=== PATIENT | female | born 1990 | race American Indian/Alaskan Native ===

== ENCOUNTER 2018-05-29 03:10 | Inpatient (IN) | payer MEDICAID ==
[2018-05-29 03:34] VITALS: BMI 30.8
[2018-05-29] MEDS ORDERED: Oxytocin 30 UNIT 30 UNITS/500 ML BAG IV ONE ×2 (03:50→09:50)
[2018-05-29] MEDS: Lactated Ringer's 1,000 ML IV ONE ×2 (04:00→05:00)
[2018-05-29] MEDS ORDERED: OXYTOCIN/0.9 % NS 20 UNIT/1,000 ML BAG IV SCH (04:00)
[2018-05-29] MEDS ORDERED: Lactated Ringer's 1,000 ML IV SCH (04:00)
[2018-05-29 04:27] LABS: BASO # 0.1 K/uL (0.0-0.2); BASO % 0.6 % (0.0-2.0); EOS # 0.1 K/uL (0.0-0.7); EOS % 0.9 % (0.0-4.0); HEMOGLOBIN 12.2 g/dL (12.0-16.0); LYMPH # 1.6 K/uL (1.0-4.3); LYMPH % 16.4 % (20.0-40.0); MEAN CELL VOLUME 91.9 fl (81.0-99.0); MEAN CORPUSCULAR HGB CONC 33.8 g/dL (33.0-37.0); MEAN PLATELET VOLUME 11.3 fl (7.2-11.7); MONO # 0.7 K/uL (0.0-0.8); MONO % 7.4 % (0.0-10.0); NEUT # 7.1 K/uL (1.8-7.0); NEUT % 74.7 % (50.0-75.0); NRBC % 0.3 % (0.0-0.0); RBC 3.95 Mil/uL (3.80-5.20); RED CELL DISTRIBUTION WIDTH 14.7 % (11.5-14.5); WHITE BLOOD COUNT 9.5 K/uL (4.8-10.8)
[2018-05-29] MEDS ORDERED: Fentanyl/Bupivacaine HCl 250 ML EPI ONE (05:48)
[2018-05-29 07:31] VITALS: O2SAT 98
--- NOTE | 2018-05-29 08:30 | OBADHP ---
Datetime: 05/29/2018 03:55 Admit Comment, IP Provider: ETHEL: 05/31/2018 based off of 1st trimester ultrasound LMP1 irregular due to PCOS PNP: [facility] Dr. Saldnaa 28 y/o @ 39.5wks with ETHEL 06/02/2018 (based off of 1st trimester ultrasound) is presenting wit h complaints of contractions that began 2 hrs ago. She reports pain is 10/10. She endorses +FM, but d enies any complications during this ,vaginal bleeding, loss of fluid, f/c/n/v/d, chest pain, shortness of breath or dysuria . ROS: 12 points reviewed _ negative unless stated otherwise in HPI. OBGYNhx: x 2 PMH: PCOS Family Hx: non-contributory Social: Denies tob, EtOH, drugs Surg Hx: Denies Allergies: NKA Meds: PNV VS: 129/87 Pulse-98bpm SPO2-98% RR-16 PE: Intermittent facial grimacing; lying supine position CV: s1s2 RRR, no murmurs Lungs: Cta b/l, no wheezes Abdomen: Gravid, BS + FHR: reassuring - 145bpm, no decel Pelvic: Nurse Britta as regional controller (Dr. Ortiz, 4-5cm dilated) Extremities: calves nontender, nonedematous A/P: 28 y/o @ 39.3wks, 06/02/2018 based off of 1st trimester ultrasound is presenting with complai nts of contractions. -Admit to L_ D with continuous monitoring. -Labor protocol initiated. Patient seen and examined with Dr. Ortiz. Dr. Micheal Bonner, , PGY-1 Addendum: I saw and examined patient at presentation. Admit for management of labor. FHT category I. Angel Gestation - Est Wks by US: 39.5 Pool Provider: Negative IP Hx Assessment: The History has been Reviewed and is Current Vital Signs Provider: Reviewed; Within Normal Limits IP Chief Complaint: Uterine contractions NICHD Accel Fetus A IP Provider: 15X15 FHR Category Provider Fetus A: Category I NICHD Decel Fetus A IP Provider: None Dilatation, Provider: 4-5 EGA AdmitDate IP: 39.5 IP Adm Impression: Term, intrauterine IP Admit Plan: Admit to unit Datetime: 04/16/2018 11:50 Pelvic Type - PN: Adequate Extremities - PN: Normal Abdomen - PN: Normal Back - PN: Normal Breast - PN: Not Done Lungs - PN: Normal Heart - PN: Normal Thyroid - PN: Normal Neurologic - PN: Normal HEENT - PN: Normal General - PN: Normal Weight - Estimated: 2589 Presentation-Admit: Vertex FHR - Baseline A Provider: 140 Membranes, Provider: Intact Contraction Comments Provider: none Comments, ACOG Physical Exam: Gen: patient sitting up comfortably, no acute distress Heart: Normal RRR, S1S2 Lungs: Clear bilaterally Abd: nontender, soft, normal bowel sounds SVE: (chaperoned by nurse graff/Dr. Jaffe) normal external genitalia, closed cervix, thick whit e discharge Extremities: no pedal edema or calf tenderness Neuro: alert, oriented x3 NICHD Variability Prov Fetus A: Moderate 6-25bpm Effacement, Provider: thick Station, Provider: high Genitourinary Exam: Normal DTRs - PN: Not Done
--- NOTE | 2018-05-29 09:43 | OBPN ---
Datetime: 05/29/2018 09:31 IP Progress Impression: Normal progression of labor IP Informed Consent Obtain: Vaginal Delivery IP Procedures: Sterile Vag Exam IP Progress Plan: Augmentation Membranes, Provider: Intact Contraction Comments Provider: Q3-4 FHR - Baseline A Provider: 130 IP Progress Note Comment: S: pt admitted in early labor, s/p epidural placement, denies any complain ts O: see above A: early active labor, overall reassuring maternal/ status P: 1. labor, start pitocin for active management of labor 2. fetus: category 1 tracing 3. GBS neg 4. epidural in situ, adequate 5. patient w/ anti E antibody, stable titers and testing, alert nursery 6. prior x 2, pelvis adequate, anticipate Xiomy Jaffe MD Vital Signs Provider: Reviewed; Within Normal Limits NICHD Accel Fetus A IP Provider: 15X15 NICHD Variability Prov Fetus A: Moderate 6-25bpm Dilatation, Provider: 5-6 Effacement, Provider: 50 Station, Provider: -3 NICHD Decel Fetus A IP Provider: None Datetime: 05/29/2018 03:55 Pool Provider: Negative Gestation - Est Wks by US: 39.5 FHR Category Provider Fetus A: Category I Datetime: 04/16/2018 11:50 Weight - Estimated: 2589 Presentation-Admit: Vertex
[2018-05-29] MEDS ORDERED: Bupivacaine HCl 0.5% PF (30 ml) Inj ONE (11:57)
--- NOTE | 2018-05-29 14:05 | OBPN ---
Datetime: 05/29/2018 13:59 IP Progress Impression: Normal progression of labor IP Informed Consent Obtain: Vaginal Delivery IP Procedures: Sterile Vag Exam IP Progress Plan: Continue present management Contraction Comments Provider: q2-3 FHR - Baseline A Provider: 120 IP Progress Note Comment: Patient denies any complaints. SVE: FD/10/0 Category 1 tracing Cont expectant management Anticipate Xiomy Jaffe MD Vital Signs Provider: Reviewed; Within Normal Limits NICHD Accel Fetus A IP Provider: 15X15 NICHD Variability Prov Fetus A: Moderate 6-25bpm Dilatation, Provider: RAUL Effacement, Provider: 100 Station, Provider: 0 NICHD Decel Fetus A IP Provider: None
[2018-05-29] MEDS ORDERED: Benzocaine/Menthol SPRAY TOP PRN ×2 (15:00→16:58)
--- NOTE | 2018-05-29 15:24 | OBDS ---
MATERNAL INFORMATION Provider Comments: 28F G3 now P3, GBS negative p/w labor at 39.5wks (1416) of live male infant, KAILEY over intact perineum w/epidural anesthesia. No nuchal cord, shoulder and body delivered spontane ously w/o difficulty and baby placed on maternal abdomen. Delayed cord clamping, 9/9. Spontane ous delivery of intact placenta (1420) with 3-vessel cord. Fundal massage until firm, pitocin started . Bilateral paraurethral abrasions, hemostatic. EBL- 250cc Theresa Saldana Attending addendum: I was present for the management of labor, examined the patient myself and was present for the del bradley. I reviewed the resident note above and agree with findings and mangement. Xiomy Jaffe MD LABOR SUMMARY EDC: 05/31/2018 00:00 No. Babies in Womb: 1 LABOR INFORMATION Onset of Labor: 05/29/2018 01:30 Group B Beta Strep: Negative MEMBRANES Membranes Rupture Method: Artificial Amniotic Fluid Color: Light Meconium Amniotic Fluid Amount: Small STAGES OF LABOR Stage 3 hrs: 0 Stage 3 min: 4 Total Time in Labor hrs: 12 Total Time in Labor min: 50 VAGINAL DELIVERY Episiotomy: None Laceration Extension: N/A Laceration Type: None Laceration Repair: Not Applicable Sponge Count Correct: Yes Sharps Count Correct: Yes BABY A INFORMATION Delivery Date/Time: 05/29/2018 14:16 Method of Delivery: Vaginal Born in Route : No : N/A Forceps: N/A Vacuum Extraction: N/A Shoulder Dystocia : No SHOULDER DYSTOCIA BABY A Delivery Date/Time: 05/29/2018 14:16 PRESENTATION/POSITION BABY A Presentation: Cephalic Cephalic Presentation: Vertex Vertex Position: Left Occipital Anterior Breech Presentation: N/A PLACENTA INFORMATION BABY A Placenta Delivery Time : 05/29/2018 14:20 Placenta Method of Delivery: Spontaneous Placenta Status: Delivered SCORES BABY A Heart Rate 1 min: >100 bpm Resp Effort 1 min: Good Cry Reflex Irritability 1 min: Cough or Sneeze or Pulls Away Muscle Tone 1 min: Active Motion Color 1 min: Body [place], Extremities Blue Resuscitation Effort 1 min: N/A SCORE 1 MIN: 9 Heart Rate 5 min: >100 bpm Resp Effort 5 min: Good Cry Reflex Irritability 5 min: Cough or Sneeze or Pulls Away Muscle Tone 5 min: Active Motion Color 5 min: Body [place], Extremities Blue Resuscitation Effort 5 min: N/A SCORE 5 MIN: 9 INFORMATION BABY A Gestational Age at Delivery: 39.5 Gestational Status: Term Infant Outcome : Liveborn Infant Condition : Stable Infant Sex: Male IDENTIFICATION/MEDS BABY A ID Band Number: [id number] ID Band Location: Left Leg; Left Arm WEIGHT/LENGTH BABY A Infant Birthweight (gms): 3695 Infant Weight (lb): 8 Weight (oz): 2 CORD INFORMATION BABY A No. Cord Vessels: 3 Nuchal Cord : N/A Cord Blood Taken: Yes Infant Suction: None ASSESSMENT BABY A Complications: Meconium Complications Other: light mech Physical Findings at Delivery: Within Normal Limits Respirations: Appears Normal
[2018-05-30 07:22] LABS: BASO % 0.4 % (0.0-2.0); EOS # 0.1 K/uL (0.0-0.7); EOS % 1.2 % (0.0-4.0); LYMPH # 1.4 K/uL (1.0-4.3); LYMPH % 12.8 % (20.0-40.0); MEAN CORPUSCULAR HEMOGLOBIN 31.8 pg (27.0-31.0); MEAN CORPUSCULAR HGB CONC 34.2 g/dL (33.0-37.0); MEAN PLATELET VOLUME 11.1 fl (7.2-11.7); MONO # 0.8 K/uL (0.0-0.8); MONO % 7.1 % (0.0-10.0); NEUT # 8.5 K/uL (1.8-7.0); NEUT % 78.5 % (50.0-75.0); NRBC % 0.1 % (0.0-0.0); RBC 3.14 Mil/uL (3.80-5.20); RED CELL DISTRIBUTION WIDTH 14.6 % (11.5-14.5); WHITE BLOOD COUNT 10.9 K/uL (4.8-10.8)
--- NOTE | 2018-05-30 09:30 | OBPPN ---
Datetime: 05/30/2018 06:54 PP Nausea Prov: Denies PP Flatus Prov: Yes PP BM Prov: No PP Breasts Prov: Normal PP Heart Prov: Normal PP Lungs Prov: Normal PP Abdomen/Uterus Prov: Normal PP Lochia Prov: Normal PP Vulva/Perineum Prov: Normal PP CVA Tenderness Prov: Normal PP Impression Prov: Normal progression PP Plan Prov: Continue present management PP Progress Note Prov: 28 y/o , PPD1 s/p was?seen and examined at bedside this AM. No ad verse overnight. Pelvic pain is well controlled with pain meds. ?Pt is ambulatory _ tolerating PO reg ular diet w/o complaints.?B _ B feeding w/o difficulty. ?Lochia is similar to menses volume. ?Voiding w/o difficulty. +Flatus _ +BM. ??Denies fever/chills, diarrhea, nausea/vomiting, ?CP/SOB, Lightheade dness, calf pain. O: BP: 115/73 Temp: 98.6F, 87bpm, RR-18 PE: GEN: A_O, Resting comfortably in bed, NAD CVS: S1, S2 RRR LUNGS: CTA B/L ABD: +BS, soft with appropriate tenderness, fundus @ umbilical level. ? EXT: Nonedematous, calves nontener NEURO: AAOx3 A/P: 28 y/o , PPD1 s/p -Continue regular diet as tolerated. -Ambulation as tolerated encouraged. - encouraged. -Continue Ibuprofen prn for mild pain. Case discussed with attending. -Dr. JENIFFER Bonner, FM, PGY-1 OB Attending/hospitalist : Pt seen on rounds. Agree with note H/H 05/25 MAHNDO Vital Signs Provider PP: Reviewed; Within Normal Limits
[2018-05-31 18:16] VITALS: BP 107/63; PULSE 74; RESP 19; TEMP 97.8
== END 2018-05-31 13:23 | disposition home or self-care (01) | DRG 560 ==
LOC: H.EROB2 03:10 → H.L&D 03:49 → H.OB/GYN 16:35
PROVIDERS: ADMIT Family Medicine; ATTEND Family Medicine
PROC: 10E0XZZ Delivery of Products of Conception, External Approach (ICD-10-PCS; principal; 2018-05-29)
PROC: 4A1HXCZ Monitoring of Products of Conception, Cardiac Rate, External Approach (ICD-10-PCS; 2018-05-29)
DX: O71.89 Other specified obstetric trauma (principal); O77.0 Labor and delivery complicated by meconium in amniotic fluid; Z37.0 Single live birth; Z3A.39 39 weeks gestation of pregnancy